=== PATIENT | female | born 1940 | race Caucasian/White ===

== ENCOUNTER → 2023-05-25 10:02 | Outpatient (REF) | payer MEDICARE, OTHER, SELFPAY ==
[2023-05-25 10:32] LABS: % Basophils 1.3 % (0-2); % Eosinophils 3.3 % (0-6); % Immature Granulocytes 0.3 % (0-0.5); % Lymphocytes 25.4 % (20.5-51.1); % Monocytes 10.3 % (1.7-9.3); % Neutrophils 59.4 % (42.2-75.2); Absolute Basophils 0.1 10^3/uL (0-0.2); Absolute Eosinophils 0.1 10^3/uL (0-0.7); Absolute Monocytes 0.4 10^3/uL (0.1-0.6); Absolute Neutrophils 2.4 10^3/uL (1.4-6.5); Hematocrit 29.3 % (37.0-47.0); Hemoglobin 10.2 g/dL (12.0-16.0); Mean Corp Hgb Conc. 34.8 g/dL (33.0-37.0); Mean Corpuscular Hgb 30.9 pg (27.0-31.0); Mean Corpuscular Volume 88.8 fL (81.0-99.0); Mean Platelet Volume 10.4 fL (7.4-10.4); Nucleated Red Blood Cells % 0 %; Platelet Count 255 10^3/uL (130-400)
== END ==
LOC: REG 10:02
PROVIDERS: ATTENDING PHYSICIAN Nurse Practitioner Family
DX: K92.2 Gastrointestinal hemorrhage, unspecified (principal); K59.09 Other constipation
CPT/HCPCS: 36415; 85025

== ENCOUNTER 2023-05-27 13:18 | Emergency (ER) | payer MEDICARE, OTHER, SELFPAY ==
[2023-05-27 13:23] VITALS: BP 201/79
[2023-05-27 13:44] LABS: % Basophils 1.2 % (0-2); % Eosinophils 2.2 % (0-6); % Immature Granulocytes 0.2 % (0-0.5); % Lymphocytes 22.2 % (20.5-51.1); % Monocytes 8.9 % (1.7-9.3); % Neutrophils 65.3 % (42.2-75.2); Absolute Basophils 0.1 10^3/uL (0-0.2); Absolute Eosinophils 0.1 10^3/uL (0-0.7); Absolute Lymphocytes 1.1 10^3/uL (1.2-3.4); Absolute Monocytes 0.4 10^3/uL (0.1-0.6); Absolute Neutrophils 3.2 10^3/uL (1.4-6.5); Hematocrit 31.2 % (37.0-47.0); Hemoglobin 10.6 g/dL (12.0-16.0); Mean Corpuscular Hgb 30.5 pg (27.0-31.0); Mean Corpuscular Volume 89.9 fL (81.0-99.0); Mean Platelet Volume 10.4 fL (7.4-10.4); Nucleated Red Blood Cells % 0 %; Platelet Count 259 10^3/uL (130-400); Red Blood Cell Count 3.47 10^6/uL (4.20-5.40); Red Cell Dist. Width 12.2 % (11.5-14.5)
[2023-05-27 13:56] LABS: ALT (SGPT) 16 U/L (0-35); AST (SGOT) 33 U/L (14-36); Albumin 4.8 g/dl (3.5-5.0); Alkaline Phosphatase 49 U/L (38-126); Blood Urea Nitrogen 22 mg/dl (7-17); Calcium 10.3 mg/dl (8.4-10.2); Carbon Dioxide 23 mmol/L (22-30); Chloride 99 mmol/L (98-107); Glucose 119 mg/dl (70-99); Potassium 4.7 mmol/L (3.5-5.1); Sodium 134 mmol/L (135-145); Total Bilirubin 0.7 mg/dl (0.2-1.3); Total Protein 7.4 g/dl (6.3-8.2); eGFR > 60.00
[2023-05-27 14:02] VITALS: BP 177/67
--- NOTE | 2023-05-27 14:29 | ED.GENMED ---
History of Present Illness
General
Chief Complaint: Abnormal Lab Value
Source: patient
Exam Limitations: none
Time Seen by Provider: 05/27/23 14:28
Nursing documentation reviewed up to this point in time: agreed with
Travel History
Have you had any contact with someone who has COVID-19?: No
Do you have any symptoms of coronavirus? Fever > 100 degrees, chills, cough, shortness of breath, sore throat, loss of taste or smell, muscle aches, or headache?: No
History of Present Illness
History of Present Illness:
83-year-old female with history of seizures, neuropathy, HTN, HLD, anxiety presents stating Saturday (3 days ago) saw blood in toilet after BM. Had been constipated previous week taking Miralax and prune juice. Has had 2 normal non bloody BMs past 2
days.
Spoke with Eloisa Cormier , states pt in office Saturday for seeing blood after BM once earlier that day, fingerstick POC 11.0.
Sent for out pt CBC next day and it was 10.2, repeated on fingerstick this a.m. in office showing Hgb 8.0 so sent here for eval.
Pt denies CP, Abd. pain, SOB.
Past History
Past History
ED Past Medical History: HTN, Hypercholesterolemia and Seizures
ED Past Surgical History: Gynecological, Orthopedic and Other
Social History
Tobacco: Non-smoker
Alcohol: None
Living: with family
Employment: Retired
Family History
Family History: Other (Noncontributory)
Review of Systems
Review of Systems
Allergies reviewed?: Yes
All Other Systems: ROS reviewed and negative except as documented in HPI and ROS
Constitutional: Denies fever or fatigue
Respiratory: Denies trouble breathing
Cardiac: Denies chest pain
ABD/GI: Reports constipated and bloody stools (Noticed some blood in the toilet after a bowel movement 3 days ago, none since); Denies abdominal pain, nausea, vomiting, diarrhea or black stools
: Denies dysuria, frequency or urgency
Musculoskeletal: Reports no symptoms
Skin: Reports no symptoms
Neurological: Reports no symptoms
Phy Exam
Physical Exam
Physical Exam:
GENERAL: No acute distress. A&Ox3.
CONSTITUTIONAL: Afebrile.
EYES: PERRL, conjunctivae normal
ENMT: moist mucus membranes, Pharynx nl
RESPIRATORY: Regular respirations, nonlabored, lungs clear.
CARDIOVASCULAR: Regular rate and rhythm, no murmurs, no rubs.
GI: Soft, nontender, normal BS
Rectal: Light brown stool, Hemoccult negative, no visible hemorrhoids
MUSCULOSKELETAL: Moves with ease. Well perfused.
SKIN: Warm, dry, pink
PSYCH: Normal mood and affect. Well kept, interactive and appropriate
NEUROLOGIC: Awake, alert and oriented. No focal neurological deficits
Course
Orders/Labs/Results
Orders:
Orders
05/27/23 13:28
Type+Screen Urgent
Complete Blood Count/With Diff Urgent
Comprehensive Metabolic Panel Urgent
Abnormal Lab Results
05/27/23
13:28
RBC 3.47 L 10^6/uL
(4.20-5.40)
Hgb 10.6 L g/dL
(12.0-16.0)
Hct 31.2 L %
(37.0-47.0)
Absolute Lymphs (auto) 1.1 L 10^3/uL
(1.2-3.4)
Sodium 134 L mmol/L
(135-145)
BUN 22 H mg/dl
(7-17)
Glucose 119 H mg/dl
(70-99)
Calcium 10.3 H mg/dl
(8.4-10.2)
05/27/23 13:28
03/18/24 13:28
Vital Signs
Initial and Last Documented VS:
Initial Vital Signs
Temp Pulse Resp BP Pulse Ox
98.2 F 69 16 201/79 99
05/27/23 13:23 05/27/23 13:23 05/27/23 13:23 05/27/23 13:23 05/27/23 13:23
Last Documented Vital Signs
Temp Pulse Resp BP Pulse Ox
98.2 F 75 18 177/67 97
05/27/23 13:23 05/27/23 14:02 05/27/23 14:02 05/27/23 14:02 05/27/23 14:02
MDM/Problems Addressed
Differential Diagnosis Includes:
Hemorrhoid, GI bleed
MDM/Problems Addressed:
83-year-old female with history of seizures, neuropathy, HTN, HLD, anxiety presents stating Saturday (3 days ago) saw blood in toilet after BM. Had been constipated previous week taking Miralax and prune juice. Has had 2 normal non bloody BMs past 2
days.
Spoke with Eloisa Cormier , states pt in office Saturday for seeing blood after BM once earlier that day, fingerstick POC 11.0.
Sent for out pt CBC next day and it was 10.2, repeated on fingerstick this a.m. in office showing Hgb 8.0 so sent here for eval.
Pt denies CP, Abd. pain, SOB.
05/27/2023 1500 PM
Hemoglobin 10.6. No clinically significant abnormality
CMP: BUN 22, encouraged to increase fluids for mild dehydration. Otherwise, no clinically significant abnormality
Most likely lab machine error
*Critical Care Note
Total Time (30-74mins, 75-104mins- exclusive of procedures): Not Applicable
ED Attending Note
-
Portions of this chart may have been created with voice recognition software.� Occasional wrong word or��sound alike� substitutions may have occurred due to the inherent limitations of voice recognition software.
Discharge Plan
Departure
Patient Disposition: Home (Routine Discharge)
Date of Disposition: 05/27/23
Time of Disposition: 15:04
Patient with high blood pressure during this ER visit?: Yes
Condition: Good
Discharge Problem:
Abnormal laboratory test
Prescriptions:
No Action
cyanocobalamin (vitamin B-12) 1,000 MCG tablet
1,000 mcg PO DAILY
amlodipine 5 MG tablet
5 mg PO DAILY
ferrous sulfate [iron] 325 MG tablet
325 mg PO Q48H
folic acid 1 MG tablet
1 mg PO DAILY
benazepril 40 MG tablet
40 mg PO DAILY
fenofibrate 160 MG tablet
160 mg PO DAILY
cholecalciferol (vitamin D3) 2,000 UNIT tablet
2,000 unit PO DAILY
sennosides [senna] 8.6 mg Tablet
8.6 mg PO HS
Metamucil Packet
1 packet PO BID
docusate sodium [Colace] 100 mg Capsule
200 mg PO DAILY
magnesium oxide 400 mg magnesium Tablet
400 mg PO HS
Referrals:
Ml Batista MD [Family Provider] -
Activity Restrictions/Additional Instructions:
As we discussed, your blood test shows nothing worrisome.
The fingerstick this a.m. at the office was most likely erroneous.
You may have had a bleeding hemorrhoid
Interventions
Interventions:
*Risk Screen - Suicide Last Done: 05/27/23 13:23
*General Assessment Last Done: 05/27/23 13:23
*Neglect/Abuse Screening Last Done: 05/27/23 13:23
ED- Fall Risk Assessment Last Done: 05/27/23 15:42
*ED COVID-19 Vaccine History Last Done: 05/27/23 13:23
*Nursing Disposition Last Done: 05/27/23 15:42
Discharge Date and Time
Discharge Date/Time: 05/27/23 15:42
== END 2023-05-27 15:42 | disposition home or self-care (01) ==
LOC: EMR 13:18
PROVIDERS: EMERGENCY PHYSICIAN Student in an Organized Health Care Education/Training Program; FAMILY PHYSICIAN Family Medicine
DX: R79.89 Other specified abnormal findings of blood chemistry (principal); I10 Essential (primary) hypertension; E78.00 Pure hypercholesterolemia, unspecified; E86.0 Dehydration
CPT/HCPCS: 99283; 80053; 85025; 86850; 86900; 86901

== ENCOUNTER → 2023-06-03 12:29 | Outpatient (REF) | payer MEDICARE, OTHER, SELFPAY ==
[2023-06-03 14:10] LABS: % Eosinophils 1.9 % (0-6); % Immature Granulocytes 0.4 % (0-0.5); % Lymphocytes 22.3 % (20.5-51.1); % Monocytes 9.8 % (1.7-9.3); % Neutrophils 64.6 % (42.2-75.2); Absolute Basophils 0.1 10^3/uL (0-0.2); Absolute Eosinophils 0.1 10^3/uL (0-0.7); Absolute Lymphocytes 1.2 10^3/uL (1.2-3.4); Absolute Monocytes 0.5 10^3/uL (0.1-0.6); Absolute Neutrophils 3.4 10^3/uL (1.4-6.5); Hematocrit 29.8 % (37.0-47.0); Hemoglobin 10.4 g/dL (12.0-16.0); Mean Corp Hgb Conc. 34.9 g/dL (33.0-37.0); Mean Corpuscular Hgb 30.9 pg (27.0-31.0); Mean Corpuscular Volume 88.4 fL (81.0-99.0); Mean Platelet Volume 11.4 fL (7.4-10.4); Nucleated Red Blood Cells % 0 %; Platelet Count 288 10^3/uL (130-400); Red Blood Cell Count 3.37 10^6/uL (4.20-5.40); Red Cell Dist. Width 12.1 % (11.5-14.5); White Blood Cell Count 5.2 10^3/uL (4.8-10.8)
== END ==
LOC: REG 12:29
PROVIDERS: ATTENDING PHYSICIAN Nurse Practitioner Family
DX: D64.9 Anemia, unspecified (principal)
CPT/HCPCS: 36415; 85025

== ENCOUNTER → 2023-10-31 11:36 | Outpatient (REF) | payer MEDICARE, OTHER, SELFPAY ==
[2023-10-31 12:21] LABS: % Basophils 1.3 % (0-2); % Eosinophils 5.6 % (0-6); % Immature Granulocytes 0.4 % (0-0.5); % Lymphocytes 23.6 % (20.5-51.1); % Monocytes 11.5 % (1.7-9.3); % Neutrophils 57.6 % (42.2-75.2); Absolute Basophils 0.1 10^3/uL (0-0.2); Absolute Eosinophils 0.3 10^3/uL (0-0.7); Absolute Lymphocytes 1.1 10^3/uL (1.2-3.4); Absolute Monocytes 0.5 10^3/uL (0.1-0.6); Absolute Neutrophils 2.7 10^3/uL (1.4-6.5); Hemoglobin 10.6 g/dL (12.0-16.0); Mean Corp Hgb Conc. 35.3 g/dL (33.0-37.0); Mean Corpuscular Hgb 30.8 pg (27.0-31.0); Mean Corpuscular Volume 87.2 fL (81.0-99.0); Mean Platelet Volume 10.5 fL (7.4-10.4); Nucleated Red Blood Cells % 0 %; Platelet Count 274 10^3/uL (130-400); Red Blood Cell Count 3.44 10^6/uL (4.20-5.40); Red Cell Dist. Width 12.4 % (11.5-14.5); White Blood Cell Count 4.6 10^3/uL (4.8-10.8)
[2023-10-31 12:46] LABS: ALT (SGPT) 16 U/L (0-35); AST (SGOT) 35 U/L (14-36); Albumin 4.8 g/dl (3.5-5.0); Alkaline Phosphatase 43 U/L (38-126); Blood Urea Nitrogen 20 mg/dl (7-17); Calcium 10.5 mg/dl (8.4-10.2); Carbon Dioxide 26 mmol/L (22-30); Chloride 96 mmol/L (98-107); Glucose 94 mg/dl (70-99); Potassium 4.6 mmol/L (3.5-5.1); Sodium 136 mmol/L (135-145); Total Bilirubin 0.6 mg/dl (0.2-1.3); Total Protein 7.1 g/dl (6.3-8.2); eGFR > 60.00
[2023-10-31 12:48] LABS: C-Reactive Protein < 5.00 mg/L (0.0-10.00)
[2023-10-31 13:18] LABS: TSH Reflex To Free T4 1.15 uIU/ml (0.47-4.68)
== END ==
LOC: REG 11:36
PROVIDERS: ATTENDING PHYSICIAN Family Medicine
DX: R53.83 Other fatigue (principal); R51.9 Headache, unspecified
CPT/HCPCS: 36415; 80053; 84443; 85025; 86140

== ENCOUNTER → 2023-11-05 11:53 | Outpatient (REF) | payer MEDICARE, OTHER, SELFPAY ==
[2023-11-05 14:45] LABS: Iron 142 ug/dl (37-170)
[2023-11-05 15:55] LABS: Folate > 20.0 ng/ml (2.76-20); Vitamin B12 906 pg/ml (239-931)
== END ==
LOC: REG 11:53
PROVIDERS: ATTENDING PHYSICIAN Family Medicine
DX: D64.9 Anemia, unspecified (principal); Z79.899 Other long term (current) drug therapy
CPT/HCPCS: 36415; 82607; 82728; 82746; 83540

== ENCOUNTER → 2023-11-18 11:47 | Outpatient (REF) | payer MEDICARE, OTHER, SELFPAY | LOC: REG 11:47 | PROVIDERS: ATTENDING PHYSICIAN Family Medicine; FAMILY PHYSICIAN Family Medicine | DX: D64.9 Anemia, unspecified (principal) | CPT/HCPCS: 82270 ==

== ENCOUNTER → 2023-11-25 11:50 | Outpatient (REF) | payer MEDICARE, OTHER, SELFPAY ==
[2023-11-25 12:19] LABS: % Basophils 1.6 % (0-2); % Immature Granulocytes 0.2 % (0-0.5); % Lymphocytes 29.9 % (20.5-51.1); % Monocytes 12.4 % (1.7-9.3); % Neutrophils 45.9 % (42.2-75.2); Absolute Basophils 0.1 10^3/uL (0-0.2); Absolute Eosinophils 0.4 10^3/uL (0-0.7); Absolute Lymphocytes 1.3 10^3/uL (1.2-3.4); Absolute Monocytes 0.6 10^3/uL (0.1-0.6); Hematocrit 30.3 % (37.0-47.0); Hemoglobin 10.4 g/dL (12.0-16.0); Mean Corp Hgb Conc. 34.3 g/dL (33.0-37.0); Mean Corpuscular Hgb 31.2 pg (27.0-31.0); Mean Platelet Volume 10.7 fL (7.4-10.4); Nucleated Red Blood Cells % 0 %; Platelet Count 259 10^3/uL (130-400); Red Blood Cell Count 3.33 10^6/uL (4.20-5.40); Red Cell Dist. Width 12.4 % (11.5-14.5); White Blood Cell Count 4.4 10^3/uL (4.8-10.8)
== END ==
LOC: REG 11:50
PROVIDERS: ATTENDING PHYSICIAN Family Medicine; FAMILY PHYSICIAN Family Medicine
DX: D64.9 Anemia, unspecified (principal)
CPT/HCPCS: 36415; 85025

== ENCOUNTER → 2023-12-11 11:38 | Outpatient (REF) | payer MEDICARE, OTHER, SELFPAY ==
[2023-12-11 13:02] LABS: % Basophils 0.7 % (0-2); % Eosinophils 2.7 % (0-6); % Immature Granulocytes 0.2 % (0-0.5); % Lymphocytes 18.3 % (20.5-51.1); % Monocytes 8.3 % (1.7-9.3); % Neutrophils 69.8 % (42.2-75.2); Absolute Eosinophils 0.2 10^3/uL (0-0.7); Absolute Monocytes 0.5 10^3/uL (0.1-0.6); Absolute Neutrophils 3.9 10^3/uL (1.4-6.5); Hematocrit 32.1 % (37.0-47.0); Hemoglobin 11.1 g/dL (12.0-16.0); Mean Corp Hgb Conc. 34.6 g/dL (33.0-37.0); Mean Corpuscular Hgb 31.3 pg (27.0-31.0); Mean Corpuscular Volume 90.4 fL (81.0-99.0); Mean Platelet Volume 11.1 fL (7.4-10.4); Nucleated Red Blood Cells % 0 %; Platelet Count 316 10^3/uL (130-400); Red Blood Cell Count 3.55 10^6/uL (4.20-5.40); Red Cell Dist. Width 12.6 % (11.5-14.5); Reticulocyte Count 1.4 % (0.4-2.8); White Blood Cell Count 5.6 10^3/uL (4.8-10.8)
[2023-12-11 13:41] LABS: ALT (SGPT) 19 U/L (0-35); AST (SGOT) 32 U/L (14-36); Alkaline Phosphatase 42 U/L (38-126); Blood Urea Nitrogen 19 mg/dl (7-17); Calcium 10.2 mg/dl (8.4-10.2); Carbon Dioxide 24 mmol/L (22-30); Chloride 98 mmol/L (98-107); Glucose 95 mg/dl (70-99); Iron 117 ug/dl (37-170); LDH 199 U/L (120-246); Potassium 4.6 mmol/L (3.5-5.1); Sodium 135 mmol/L (135-145); Total Bilirubin 0.6 mg/dl (0.2-1.3); Total Protein 7.3 g/dl (6.3-8.2); eGFR > 60.00
[2023-12-11 13:51] LABS: Percent Saturation 25 % (20-50); Total Iron Binding Capacity 467 ug/dl (265-497)
[2023-12-11 13:57] LABS: Vitamin D, 25-OH*** 51.4 ng/mL (30-80)
[2023-12-11 14:47] LABS: Folate > 20.0 ng/ml (2.76-20); Vitamin B12 936 pg/ml (239-931)
== END ==
LOC: REG 11:38
PROVIDERS: ATTENDING PHYSICIAN Nurse Practitioner Acute Care; FAMILY PHYSICIAN Family Medicine
DX: D64.9 Anemia, unspecified (principal); R53.83 Other fatigue; Z79.899 Other long term (current) drug therapy
CPT/HCPCS: 36415; 80053; 82306; 82607; 82728; 82746; 82784; 83010; 83521; 83540; 83550; 83615; 84155; 84165; 85025; 85045; 86334

== ENCOUNTER 2024-01-26 18:25 | Emergency (ER) | payer MEDICARE, OTHER, SELFPAY ==
[2024-01-26 18:31] VITALS: BP 132/74
[2024-01-26 19:00] VITALS: BP 177/67; BMI 21.5
--- NOTE | 2024-01-26 19:01 | ED.GENMED ---
History of Present Illness
General
Chief Complaint: Blood Pressure Problem
Source: patient
Exam Limitations: none
Time Seen by Provider: 01/26/24 18:47
History of Present Illness
History of Present Illness:
This is a 84 year old female that comes in with c/o hypertension. States that for the past 2-3 weeks she has had a headache. States that her BP has also been elevated. states that she saw the PCP around 2 weeks ago and her BP was high at that time.
States that they increased her Amlodipine to 10mg daily and she is taking Benazepril 40mg daily. States that her BP has been running in the 200's. States that last night it was 216/89 and tonight before coming it was 200 over something. Denies any
fever, chills, chest pain, SOB, abd pain, nausea, vomiting, diarrhea, dizziness, urinary burning.
Past History
Past History
ED Past Medical History: HTN, Hypercholesterolemia, Seizures, Psychiatric (Anxiety, ) and Other (Neuropathy, PNA, )
ED Past Surgical History: Gynecological (Tubal), Orthopedic (Left meniscus repair, Left wrist fracture) and Other
Social History
Tobacco: Non-smoker
Alcohol: None
Personal:
Living: with family
Employment: Retired
Family History
Family History: Other (Noncontributory)
Review of Systems
Review of Systems
All Other Systems: ROS reviewed and negative except as documented in HPI and ROS
Constitutional: Reports no symptoms; Denies fever or chills
EENT: Reports no symptoms
Respiratory: Reports no symptoms; Denies cough or trouble breathing
Cardiac: Reports no symptoms; Denies chest pain
ABD/GI: Reports no symptoms; Denies abdominal pain, nausea, vomiting or diarrhea
: Reports no symptoms; Denies dysuria, frequency or urgency
Musculoskeletal: Reports no symptoms
Skin: Reports no symptoms
Neurological: Reports headache; Denies dizzy
Psychiatric: Reports no symptoms
Phy Exam
General Physical Exam
General Presentation: no apparent distress
General age: appears stated age
General Skin: warm and dry
General Habitus: elderly
General Mental: anxious
General Hydration: appears well hydrated
ENT Exam
ENT Exam: TM's normal, pharynx normal and neck supple
Eye Exam
Eye Exam: EOMI
Cardiovascular Exam
Cardiovascular Exam: regular rate/rhythm, no edema, normal peripheral pulses and other (Murmur)
Pulmonary Exam
Pulmonary Exam: lungs clear, no respiratory distress, no rales, chest non tender, no crackles, no rhonchi, no wheezing and no cough
Gastrointestinal Exam
Gastrointestinal Exam: normal bowel sounds, non tender, soft, no organomegaly, no pulsatile mass and non distended
Musculoskeletal Exam
Musculoskeletal Exam: full ROM and no edema
Skin Exam
Skin Exam: normal color, warm/dry, no rash and no petechia
Psychiatric Exam
Psychiatric Exam: normal mood/affect
Course
Orders/Labs/Results
Orders:
Orders
01/26/24 18:58
Acetaminophen [Tylenol] 500 mg PO NOW STA
01/26/24 19:00
CT Head W/o Iv Contrast Urgent
Comment:
Reason For Exam: Headache
01/26/24 19:07
Electrocardiogram (*1) Urgent
Reason for Study: Hypertension, Benign
EKG- Treatment ONCE
01/26/24 19:09
Complete Blood Count/With Diff Urgent
Comprehensive Metabolic Panel Urgent
Abnormal Lab Results
01/26/24
19:09
WBC 4.5 L 10^3/uL
(4.8-10.8)
RBC 3.24 L 10^6/uL
(4.20-5.40)
Hgb 9.9 L g/dL
(12.0-16.0)
Hct 29.3 L %
(37.0-47.0)
Absolute Lymphs (auto) 1.1 L 10^3/uL
(1.2-3.4)
Monocytes % 14.1 H %
(1.7-9.3)
BUN 22 H mg/dl
(7-17)
Glucose 107 H mg/dl
(70-99)
Alkaline Phosphatase 33 L U/L
(38-126)
01/26/24 19:09
01/26/24 19:09
WBC very slightly low, H/H low, Dehydration. Glucose nonfasting. Alk phos low.
Vital Signs
Initial and Last Documented VS:
Initial Vital Signs
Temp Pulse Resp BP Pulse Ox
98.2 F 78 20 132/74 99
01/26/24 18:31 01/26/24 18:31 01/26/24 18:31 01/26/24 18:31 01/26/24 18:31
Last Documented Vital Signs
Temp Pulse Resp BP Pulse Ox
98.2 F 69 17 177/67 98
01/26/24 18:31 01/26/24 19:03 01/26/24 19:03 01/26/24 19:00 01/26/24 19:03
MDM/Problems Addressed
Differential Diagnosis Includes:
Uncontrolled Hypertension,
MDM/Problems Addressed:
This is a 84 year old female that comes in with c/o elevated BP and headache. States that this has been going on for the past 2-3 weeks. States that she has a headache and her BP is elevated.
Will check labs. CT head and watch BP.
Back into see patient. Explained that her CT of the head is normal. There is slight Dehydration noted in the blood work. Your BP at this time is 167/63. Will have patient take her BP once in the morning and once at night. Patient to follow up with
the family doctor. Patient to increase her water intake to 8-8oz glasses daily. Patient to return with any concerns.
Chronic conditions affecting care: HTN
Acute Exacerbation and/or Progression of Chronic Illness: HTN
*Radiology
Radiology exam reviewed: radiology read reviewed (CT head-No acute intracranial abnormality noted. )
*Pulse Oximetry
Patient hypoxic: no
*Critical Care Note
Total Time (30-74mins, 75-104mins- exclusive of procedures): Not Applicable
ED Attending Note
-
Portions of this chart may have been created with voice recognition software.� Occasional wrong word or��sound alike� substitutions may have occurred due to the inherent limitations of voice recognition software.
Discharge Plan
Departure
Patient Disposition: Home (Routine Discharge)
Date of Disposition: 01/26/24
Time of Disposition: 20:04
Patient with high blood pressure during this ER visit?: Yes
Condition: Good
Covid-19: Not Applicable
Discharge Problem:
Hypertension, Headache
Instructions: High Blood Pressure (DC), Headache, Adult ED, BLOOD PRESSURE
Prescriptions:
No Action
cyanocobalamin (vitamin B-12) 1,000 MCG tablet
1,000 mcg PO DAILY
amlodipine 5 MG tablet
5 mg PO DAILY
ferrous sulfate [iron] 325 MG tablet
325 mg PO Q48H
folic acid 1 MG tablet
1 mg PO DAILY
benazepril 40 MG tablet
40 mg PO DAILY
fenofibrate 160 MG tablet
160 mg PO DAILY
cholecalciferol (vitamin D3) 2,000 UNIT tablet
2,000 unit PO DAILY
sennosides [senna] 8.6 mg Tablet
8.6 mg PO HS
Metamucil Packet
1 packet PO BID
docusate sodium [Colace] 100 mg Capsule
200 mg PO DAILY
magnesium oxide 400 mg magnesium Tablet
400 mg PO HS
Activity Restrictions/Additional Instructions:
As discussed, your blood work shows that you are a little Dehydrated. Please increase your water intake to 8-8oz glasses daily. Please only take your BP once in the morning and once at night. Please sit for 5 min with your feet flat on the floor and
arm level with the heart before taking your BP. Please call your family doctor and set up a follow up appointment for further evaluation. You may also take Tylenol 1000mg every 6 hours for you headache pain. IF YOU HAVE ANY OTHER CONCERNS PLEASE
RETURN TO THE EMERGENCY ROOM.
Interventions
Interventions:
*Risk Screen - Suicide Last Done: 01/26/24 18:31
*General Assessment Last Done: 01/26/24 19:00
*Neglect/Abuse Screening Last Done: 01/26/24 18:31
*ED COVID-19 Vaccine History Last Done: 01/26/24 19:00
ED- Cardiac Assessment Last Done: 01/26/24 19:00
ED- Neurological Assessment Last Done: 01/26/24 19:00
ED- Pulmonary Assessment Last Done: 01/26/24 19:03
Discharge Date and Time
Print Language: SLOVAK
[2024-01-26 19:14] LABS: % Basophils 1.1 % (0-2); % Eosinophils 5.1 % (0-6); % Immature Granulocytes 0.2 % (0-0.5); % Lymphocytes 23.1 % (20.5-51.1); % Monocytes 14.1 % (1.7-9.3); % Neutrophils 56.4 % (42.2-75.2); Absolute Basophils 0.1 10^3/uL (0-0.2); Absolute Eosinophils 0.2 10^3/uL (0-0.7); Absolute Lymphocytes 1.1 10^3/uL (1.2-3.4); Absolute Monocytes 0.6 10^3/uL (0.1-0.6); Absolute Neutrophils 2.6 10^3/uL (1.4-6.5); Hematocrit 29.3 % (37.0-47.0); Hemoglobin 9.9 g/dL (12.0-16.0); Mean Corp Hgb Conc. 33.8 g/dL (33.0-37.0); Mean Corpuscular Hgb 30.6 pg (27.0-31.0); Mean Corpuscular Volume 90.4 fL (81.0-99.0); Mean Platelet Volume 9.7 fL (7.4-10.4); Nucleated Red Blood Cells % 0 %; Platelet Count 271 10^3/uL (130-400); Red Blood Cell Count 3.24 10^6/uL (4.20-5.40); Red Cell Dist. Width 12.4 % (11.5-14.5); White Blood Cell Count 4.5 10^3/uL (4.8-10.8)
[2024-01-26] MEDS: TYLENOL 500 MG PO (19:18)
[2024-01-26 19:44] LABS: ALT (SGPT) 16 U/L (0-35); AST (SGOT) 30 U/L (14-36); Albumin 4.6 g/dl (3.5-5.0); Alkaline Phosphatase 33 U/L (38-126); Blood Urea Nitrogen 22 mg/dl (7-17); Carbon Dioxide 23 mmol/L (22-30); Chloride 102 mmol/L (98-107); Estimated Creatinine Clearance 37 ml/min; Glucose 107 mg/dl (70-99); Sodium 137 mmol/L (135-145); Total Bilirubin 0.3 mg/dl (0.2-1.3); eGFR 55.21
[2024-01-26 20:00] VITALS: BP 167/63
== END 2024-01-26 20:26 | disposition home or self-care (01) ==
LOC: EMR 18:25
PROVIDERS: Clinical Nurse Specialist Family Health; EMERGENCY PHYSICIAN Emergency Medicine; FAMILY PHYSICIAN Family Medicine
DX: I10 Essential (primary) hypertension (principal); R51.9 Headache, unspecified; E78.00 Pure hypercholesterolemia, unspecified; Z79.899 Other long term (current) drug therapy
CPT/HCPCS: 99284; 70450; 80053; 85025; 93005

== ENCOUNTER 2024-02-04 14:04 | Emergency (ER) | payer MEDICARE, OTHER, SELFPAY ==
[2024-02-04 14:07] VITALS: BP 125/73
--- NOTE | 2024-02-04 14:15 | ED.MUSCINJ ---
HPI-Injury
<Margarette Cueva PA-C - Last Filed: 02/04/24 14:17>
General
Chief Complaint: Fall
Time Seen by Provider: 02/04/24 14:53
<Jessika Rivera PA-C - Last Filed: 02/04/24 19:05>
General
Source: patient
Exam Limitations: none
Nursing documentation reviewed up to this point in time: agreed with
History of Present Illness-Injury
Is this injury a work related problem?: No
Initial Injury comments:
84-year-old female with past medical history of neuropathy, anxiety, seizures presents emergency department today with concerns of fall. Patient lives at home with son. She uses a cane at baseline. She reports that she was carrying a rug into her
home when the end of the rug got caught between her feet and she subsequently fell. Her knees broke her fall. She not hit her head or injure her neck. She did not lose consciousness. Her son had to help her up and she states that when she got
up, she does have right toe pain with weightbearing and pain in her left knee. Patient has no pain in her upper extremities. Patient does not take a blood thinner. Patient denies chest pain or shortness of breath. Patient denies palpitations
ED Provider Triage
<Margarette Cueva PA-C - Last Filed: 02/04/24 14:17>
-
Patient seen by provider in Triage?: Seen in Triage
84-year-old female history of epilepsy, had a mechanical trip and fall when she was carrying her rugs. She has pain in her right third fourth and fifth toes as well as her left knee. She says she landed on both knees with her foot underneath her.
She was able to get up but she is having a lot of pain with weightbearing. She did Tylenol yesterday. This fall was yesterday
A medical screening examination has been initiated by a qualified medical provider. Based on the assessment performed at this time, it has been determined that an emergent medical condition may exist and the patient has been informed that further
medical evaluation and possible additional diagnostic testing may be needed.
HPI: This is a medical evaluation conducted in person to initiate diagnostic evaluation and provide initial therapeutics. Please see further documentation by the treating clinician.
GENERAL: Alert , in no apparent distress
ENT: No visible abnormalities
LUNGS: No acute respiratory distress
NEUROLOGICAL: Alert and oriented
SKIN: Skin intact. No visible changes.
MUSCULOSKELETAL: No significant swelling of the right foot, questionable bruising or redness of the right fifth toe, painful range of motion, no deformity, no ankle tenderness, left knee has some arthritic changes with mild pain with flexion, no
significant swelling or effusion
PSYCH: Normal and appropriate interaction.
Past History
<Margarette Cueva PA-C - Last Filed: 02/04/24 14:17>
Past History
ED Past Medical History: HTN, Hypercholesterolemia, Seizures, Psychiatric (Anxiety, ) and Other (Neuropathy, PNA, )
ED Past Surgical History: Gynecological (Tubal), Orthopedic (Left meniscus repair, Left wrist fracture) and Other
Social History
Tobacco: Non-smoker
Alcohol: None
Personal:
Living: with family
Employment: Retired
Family History
Family History: Other (Noncontributory)
Review of Systems
<Jessika Rivera PA-C - Last Filed: 02/04/24 19:05>
Review of Systems
All Other Systems: ROS reviewed and negative except as documented in HPI and ROS
Phy Exam
<Jessika Rivera PA-C - Last Filed: 02/04/24 19:05>
Physical Exam
Physical Exam:
General: Patient is well appearing and in no acute distress; non-toxic
Skin: Warm and dry, no rashes or lesions
Head: Normocephalic, atraumatic
Eyes: Sclera non-icteric. EOMs intact.
Cardiac: Regular rate
Peripheral Vascular: No lower extremity swelling or edema, 2+ dorsalis pedis and posterior tibial pulses bilaterally
Pulm: Normal respiratory effort
Abdomen: No abdominal tenderness
Musculoskeletal: Full range of motion of bilateral lower extremities. Left knee joint stable, no joint laxity with varus valgus stress, anterior drawer testing negative. No palpable bony deformities. No palpable bony deformities of right toes.
Neuro: CN II-XII intact, no focal neurologic deficits. Sensation intact light touch bilateral lower extremities.
Psychiatric: Appropriate mood and affect.
Injury Course
<Margarette Cueva PA-C - Last Filed: 02/04/24 14:17>
Orders/Labs/Results
Orders:
Orders
02/04/24 14:13
CR Foot - Right Min 3 Views Urgent
Comment:
Reason For Exam: fall right latera toe pain
CR Knee - Left 4 Or More View* Urgent
Comment:
Reason For Exam: left knee pain after fall
02/04/24 15:23
Acetaminophen [Tylenol] 1,000 mg PO NOW STA
<Jessika Rivera PA-C - Last Filed: 02/04/24 19:05>
Orders/Labs/Results
Orders:
Orders
02/04/24 14:13
CR Foot - Right Min 3 Views Urgent
Comment:
Reason For Exam: fall right latera toe pain
CR Knee - Left 4 Or More View* Urgent
Comment:
Reason For Exam: left knee pain after fall
02/04/24 15:23
Acetaminophen [Tylenol] 1,000 mg PO NOW STA
<Gonzales Barney DO - Last Filed: 02/04/24 20:22>
Orders/Labs/Results
Orders:
Orders
02/04/24 14:13
CR Foot - Right Min 3 Views Urgent
Comment:
Reason For Exam: fall right latera toe pain
CR Knee - Left 4 Or More View* Urgent
Comment:
Reason For Exam: left knee pain after fall
02/04/24 15:23
Acetaminophen [Tylenol] 1,000 mg PO NOW STA
<Jessika Rivera PA-C - Last Filed: 02/04/24 19:05>
MDM/Problems Addressed
Differential Diagnosis Includes:
Phalangeal fracture, tarsal fracture, ankle sprain, left knee sprain, patellar fracture
MDM/Problems Addressed:
84-year-old female presents emergency department following a fall. She fell forward onto her knees. She not hit her head or injure her neck. She is not on a blood thinner. On exam, patient is well-appearing and in no acute distress. She
complains of left knee pain and right toe pain. Her knee x-ray shows no findings to suggest recent cortical fracture in her foot x-ray she has no evidence of fracture as well. Patient patient walked with small electric engine technician without difficulty. Patient given
walking shoe for support of the toes. Patient stable for discharge. She does live with son at home and she does not have to climb stairs.
Chronic conditions affecting care:
Seizures, hypertension, hyperlipidemia, neuropathy
<Jessika Rivera PA-C - Last Filed: 02/04/24 19:05>
*Pulse Oximetry
Patient hypoxic: no
*Critical Care Note
Total Time (30-74mins, 75-104mins- exclusive of procedures): Not Applicable
Data Reviewed
Review of Other/Old Records Reveals: Records (Reviewed previous irritation and mentation of -, patient seen for headache and hypertension, reviewed discharge summary from 09/15/2014, patient seen for anemia)
Source: patient and records
<Gonzales Barney DO - Last Filed: 02/04/24 20:22>
*Radiology
Radiology exam reviewed: radiology read reviewed
ED Attending Note
<Margarette Cueva PA-C - Last Filed: 02/04/24 14:17>
-
Portions of this chart may have been created with voice recognition software.� Occasional wrong word or��sound alike� substitutions may have occurred due to the inherent limitations of voice recognition software.
<Gonzales Barney DO - Last Filed: 02/04/24 20:22>
ED Attending Note
Patient seen and examined by attending physician: Yes
I performed the substantive portion of visit, reviewed & personally made and approve the management plan that is documented in note by myself or YAYA.: Yes
ED Attending Note:
Patient is [id number] female presents to the emergency department stating she caught her foot on material and fell twisting her right foot and landing on her left knee. Patient is concerned that she is fractured both. Patient was able to
weight-bear and walk on them afterwards but did need assistance to stand up. Patient denies striking her head. Patient denies any neck or back pain. Patient does have tenderness about her toes and less so in the ankle and knees. Patient's left
knee is larger than her right from previous injury. Neurovascularly and tendons are intact. X-rays do not show any fractures but do show significant osteoporosis and osteopenia. Most of the issues with the patient's right toes. Patient was able
to walk in the emergency department and because it just involves the toe and distal foot patient will be put in a cast shoe/podiatric shoe. Patient will be discharged to follow-up with Ortho.
Discharge Plan
Departure
Patient Disposition: Home (Routine Discharge)
Date of Disposition: 02/04/24
Time of Disposition: 15:53
Patient with high blood pressure during this ER visit?: Yes
Condition: Good
Discharge Problem:
Fall, Pain in toe of right foot
Instructions: Preventing falls in adults, Foot sprain, BLOOD PRESSURE
Prescriptions:
No Action
cyanocobalamin (vitamin B-12) 1,000 MCG tablet
1,000 mcg PO DAILY
amlodipine 5 MG tablet
5 mg PO DAILY
ferrous sulfate [iron] 325 MG tablet
325 mg PO Q48H
folic acid 1 MG tablet
1 mg PO DAILY
benazepril 40 MG tablet
40 mg PO DAILY
fenofibrate 160 MG tablet
160 mg PO DAILY
cholecalciferol (vitamin D3) 2,000 UNIT tablet
2,000 unit PO DAILY
sennosides [senna] 8.6 mg Tablet
8.6 mg PO HS
Metamucil Packet
1 packet PO BID
docusate sodium [Colace] 100 mg Capsule
200 mg PO DAILY
magnesium oxide 400 mg magnesium Tablet
400 mg PO HS
Referrals:
Pop Wilson MD [Active] - Call in 1-3 days for appt
Activity Restrictions/Additional Instructions:
Please call the attached number to schedule an appointment to see an orthopedist in follow-up.
Please return to emergency department should you develop the inability to ambulate, chest pain, shortness of breath, increasing pain, pallor in your foot, numbness or tingling, weakness, confusion, or any other symptoms or signs worrisome to you
Interventions
Interventions:
*Risk Screen - Suicide Last Done: 02/04/24 14:07
*General Assessment Last Done: 02/04/24 14:07
*Neglect/Abuse Screening Last Done: 02/04/24 14:07
*Nursing Disposition Last Done: 02/04/24 16:10
ED-Musculoskeletal Assessment Last Done: 02/04/24 14:30
ED- Neurological Assessment Last Done: 02/04/24 14:30
Discharge Date and Time
Discharge Date/Time: 02/04/24 16:11
Print Language: CHADIAN
[2024-02-04] MEDS: TYLENOL 1000 MG PO (15:31)
== END 2024-02-04 16:11 | disposition home or self-care (01) ==
LOC: EMR 14:04
PROVIDERS: EMERGENCY PHYSICIAN Emergency Medicine; FAMILY PHYSICIAN Family Medicine
DX: M79.674 Pain in right toe(s) (principal); M25.562 Pain in left knee; W18.09XA Striking against other object with subsequent fall, initial encounter; E78.00 Pure hypercholesterolemia, unspecified; G40.909 Epilepsy, unspecified, not intractable, without status epilepticus; I10 Essential (primary) hypertension
CPT/HCPCS: 99283; 73564; 73630

== ENCOUNTER → 2024-05-29 11:19 | Outpatient (REF) | payer MEDICARE, SELFPAY ==
[2024-05-29 12:23] LABS: % Basophils 1.2 % (0-2); % Eosinophils 6.4 % (0-6); % Immature Granulocytes 0.2 % (0-0.5); % Lymphocytes 29.8 % (20.5-51.1); % Monocytes 12.8 % (1.7-9.3); % Neutrophils 49.6 % (42.2-75.2); Absolute Basophils 0.1 10^3/uL (0-0.2); Absolute Eosinophils 0.3 10^3/uL (0-0.7); Absolute Lymphocytes 1.3 10^3/uL (1.2-3.4); Absolute Monocytes 0.5 10^3/uL (0.1-0.6); Absolute Neutrophils 2.1 10^3/uL (1.4-6.5); Hematocrit 30.7 % (37.0-47.0); Mean Corp Hgb Conc. 32.6 g/dL (33.0-37.0); Mean Corpuscular Hgb 30.4 pg (27.0-31.0); Mean Corpuscular Volume 93.3 fL (81.0-99.0); Mean Platelet Volume 11.3 fL (7.4-10.4); Nucleated Red Blood Cells % 0 %; Platelet Count 252 10^3/uL (130-400); Red Blood Cell Count 3.29 10^6/uL (4.20-5.40); Red Cell Dist. Width 12.4 % (11.5-14.5); White Blood Cell Count 4.2 10^3/uL (4.8-10.8)
[2024-05-29 13:16] LABS: C-Reactive Protein < 5.00 mg/L (0.0-10.00)
[2024-05-29 13:29] LABS: ALT (SGPT) 14 U/L (0-35); AST (SGOT) 26 U/L (14-36); Albumin 4.4 g/dl (3.5-5.0); Alkaline Phosphatase 42 U/L (38-126); Blood Urea Nitrogen 22 mg/dl (7-17); Calcium 10.3 mg/dl (8.4-10.2); Carbon Dioxide 26 mmol/L (22-30); Chloride 103 mmol/L (98-107); Glucose 86 mg/dl (70-99); Potassium 5.2 mmol/L (3.5-5.1); Sodium 136 mmol/L (135-145); Total Bilirubin 0.6 mg/dl (0.2-1.3); Total Protein 6.9 g/dl (6.3-8.2); eGFR 55.21
[2024-05-29 13:47] LABS: TSH Reflex To Free T4 1.11 uIU/ml (0.47-4.68)
== END ==
LOC: REG 11:19
PROVIDERS: ATTENDING PHYSICIAN Family Medicine
DX: I10 Essential (primary) hypertension (principal); R53.82 Chronic fatigue, unspecified; D64.9 Anemia, unspecified; H01.9 Unspecified inflammation of eyelid
CPT/HCPCS: 36415; 80053; 84443; 85025; 86140

== ENCOUNTER → 2024-07-03 11:21 | Outpatient (REF) | payer MEDICARE, SELFPAY ==
[2024-07-03 12:34] LABS: Calcium 10.4 mg/dl (8.4-10.2); Potassium 4.6 mmol/L (3.5-5.1)
== END ==
LOC: REG 11:21
PROVIDERS: ATTENDING PHYSICIAN Family Medicine
DX: E83.52 Hypercalcemia (principal); E87.5 Hyperkalemia
CPT/HCPCS: 36415; 82310; 84132

== ENCOUNTER 2024-08-28 10:48 | Emergency (ER) | payer MEDICARE, SELFPAY ==
[2024-08-28 11:04] VITALS: BP 189/75
[2024-08-28 11:32] LABS: % Basophils 1.3 % (0-2); % Eosinophils 4.4 % (0-6); % Immature Granulocytes 0.2 % (0-0.5); % Lymphocytes 29.8 % (20.5-51.1); % Monocytes 10.3 % (1.7-9.3); Absolute Basophils 0.1 10^3/uL (0-0.2); Absolute Eosinophils 0.2 10^3/uL (0-0.7); Absolute Lymphocytes 1.4 10^3/uL (1.2-3.4); Absolute Monocytes 0.5 10^3/uL (0.1-0.6); Absolute Neutrophils 2.5 10^3/uL (1.4-6.5); Hematocrit 30.6 % (37.0-47.0); Hemoglobin 10.5 g/dL (12.0-16.0); Mean Corp Hgb Conc. 34.3 g/dL (33.0-37.0); Mean Corpuscular Hgb 30.6 pg (27.0-31.0); Mean Corpuscular Volume 89.2 fL (81.0-99.0); Mean Platelet Volume 10.7 fL (7.4-10.4); Nucleated Red Blood Cells % 0 %; Platelet Count 266 10^3/uL (130-400); Red Blood Cell Count 3.43 10^6/uL (4.20-5.40); Red Cell Dist. Width 12.4 % (11.5-14.5); White Blood Cell Count 4.6 10^3/uL (4.8-10.8)
--- NOTE | 2024-08-28 11:40 | ED.GENMED ---
History of Present Illness
General
Chief Complaint: Fainting Sensation
Time Seen by Provider: 08/28/24 11:39
History of Present Illness
History of Present Illness:
TIME OF INITIAL EVALUATION
- 11:40 AM
REVIEW OF OLD RECORDS
- High blood pressure, hyperlipidemia, the patient was seen here in January related to a headache and also another visit related to a fall; she has been anemic in the past and was admitted for anemia in 2014
Note:
CHIEF COMPLAINT(S)
Dizziness
HISTORY OF PRESENT ILLNESS
The patient is an 84-year-old female with a past medical history of anemia, presenting with dizziness for the past few weeks. The dizziness is described as a lightheaded feeling rather than a sensation of movement. The patient also reports a
sensation of feeling hot, though no actual fever is present. She reports increased tiredness and uses a cane for stability, which she had not used in over a year. There is no reported loss of strength or coordination upon examination. The patient
denies any overt blood loss or black stools.
ADDITIONAL HISTORY OBTAINED FROM SOURCES OTHER THAN THE PATIENT
Her son reports the patient has been more tired than usual.
EXTERNAL RECORDS REVIEWED
Based on prior ER records from 2014, the patient was previously admitted for anemia. Current blood work results are pending.
PHYSICAL EXAM
- Coordination: Good coordination noted in upper limbs.
- Strength: Strength appears normal bilaterally in upper and lower extremities.
- Sensation: Normal sensation to touch in lower extremities.
- Vital signs and nursing notes reviewed.
DIFFERENTIAL DIAGNOSIS
The Differential Diagnosis includes, in no particular order and is not limited to:
1. Anemia
2. Orthostatic hypotension
3. Vestibular dysfunction
4. Dehydration
5. Medication side effects
6. Hypoglycemia
7. Cardiovascular insufficiency
8. Hypertension
9. Anxiety-related dizziness
10. Central nervous system pathology
RADIOLOGY
- No clear indication for CT imaging but I did offer and consider CT imaging of the abdomen pelvis
EKG
- Sinus 66, left axis deviation, no acute ST abnormality
LABS
- White count 4.6, hemoglobin 10.5 which is near recent baseline, chemistries relatively unremarkable however the calcium is slightly high at 10.7
UPDATE
- Condition unchanged while in ED
INDEPENDENT REVIEW OF LABS AND INTERPRETATION OF TESTS
My independent review of the blood work shows a hemoglobin level that is slightly low, indicating mild anemia, with no significant drop from previous levels. B12 levels were added for evaluation but results are pending. Calcium levels were slightly
elevated, but not at a level typically associated with symptoms. Neurologic examination was normal. EKG was reviewed and appeared normal.
MEDICAL DECISION MAKING
1. Number & Complexity of Problems: Chronic conditions affecting care: anemia. Differential diagnoses include potential factors like nutritional deficits (B12), dehydration, or other non-severe causes given lab findings.
2. Data Reviewed:
- Category 1: Blood work and EKG were ordered and reviewed.
- Category 2: External notes or independent historians were referenced regarding past anemia.
PATHOLOGIES TO CONSIDER
- Anemia: Evaluate for potential contributing factors despite mild current findings.
- Cardiovascular insufficiency: Consider possible related factors given age and dizziness.
- Central nervous system pathology: However, Normal neurological exam
Past History
Past History
ED Past Medical History: HTN, Hypercholesterolemia, Seizures, Psychiatric (Anxiety, ) and Other (Neuropathy, PNA, )
ED Past Surgical History: Gynecological (Tubal), Orthopedic (Left meniscus repair, Left wrist fracture) and Other
Social History
Tobacco: Non-smoker
Alcohol: None
Personal:
Living: with family
Employment: Retired
Family History
Family History: Other (Noncontributory)
Phy Exam
Physical Exam
Physical Exam:
See HPI
Course
Orders/Labs/Results
Orders:
Orders
08/28/24 10:51
EKG [Electrocardiogram (*1)] Urgent
Reason for Study: Syncope
EKG- Treatment ONCE
08/28/24 11:21
Complete Blood Count/With Diff Urgent
Comprehensive Metabolic Panel Urgent
Troponin I Urgent
Abnormal Lab Results
08/28/24
11:21
WBC 4.6 L 10^3/uL
(4.8-10.8)
RBC 3.43 L 10^6/uL
(4.20-5.40)
Hgb 10.5 L g/dL
(12.0-16.0)
Hct 30.6 L %
(37.0-47.0)
MPV 10.7 H fL
(7.4-10.4)
Monocytes % 10.3 H %
(1.7-9.3)
BUN 20 H mg/dl
(7-17)
Calcium 10.7 H mg/dl
(8.4-10.2)
Alkaline Phosphatase 28 L U/L
(38-126)
08/28/24 11:21
08/28/24 11:21
Vital Signs
Initial and Last Documented VS:
Initial Vital Signs
Temp Pulse Resp BP Pulse Ox
36.6 C 69 20 189/75 98
08/28/24 11:04 08/28/24 11:04 08/28/24 11:04 08/28/24 11:04 08/28/24 11:04
Last Documented Vital Signs
Temp Pulse Resp BP Pulse Ox
36.6 C 72 19 171/69 99
08/28/24 11:04 08/28/24 13:14 08/28/24 13:14 08/28/24 13:14 08/28/24 12:00
*Pulse Oximetry
SaO2: 99
Oxygen Mode of Delivery: Room air
Patient hypoxic: no
*[employer] Interpretation
Rate: normal
Interpretation: normal
Heart Rate: 69
Rhythm: sinus
*Critical Care Note
Total Time (30-74mins, 75-104mins- exclusive of procedures): Not Applicable
ED Attending Note
-
Portions of this chart may have been created with voice recognition software.� Occasional wrong word or��sound alike� substitutions may have occurred due to the inherent limitations of voice recognition software.
Discharge Plan
Departure
Prescriptions:
No Action
cyanocobalamin (vitamin B-12) 1,000 MCG tablet
1,000 mcg PO DAILY
amlodipine 5 MG tablet
5 mg PO DAILY
ferrous sulfate [iron] 325 MG tablet
325 mg PO Q48H
folic acid 1 MG tablet
1 mg PO DAILY
benazepril 40 MG tablet
40 mg PO DAILY
fenofibrate 160 MG tablet
160 mg PO DAILY
cholecalciferol (vitamin D3) 2,000 UNIT tablet
2,000 unit PO DAILY
sennosides [senna] 8.6 mg Tablet
8.6 mg PO HS
Metamucil Packet
1 packet PO BID
docusate sodium [Colace] 100 mg Capsule
200 mg PO DAILY
magnesium oxide 400 mg magnesium Tablet
400 mg PO HS
Referrals:
Ml Batista MD [Family Provider, Family Practice]
Interventions
Interventions:
*Risk Screen - Suicide Last Done: 08/28/24 11:04
*General Assessment Last Done: 08/28/24 11:22
*Neglect/Abuse Screening Last Done: 08/28/24 11:04
*ED- Fall Risk Assessment Last Done: 08/28/24 11:22
*ED COVID-19 Vaccine History Last Done: 08/28/24 11:22
ED- Cardiac Assessment Last Done: 08/28/24 11:24
ED- Neurological Assessment Last Done: 08/28/24 11:24
Discharge Date and Time
Print Language: ESTONIAN
[2024-08-28 11:52] LABS: ALT (SGPT) 16 U/L (0-35); AST (SGOT) 29 U/L (14-36); Alkaline Phosphatase 28 U/L (38-126); Blood Urea Nitrogen 20 mg/dl (7-17); Calcium 10.7 mg/dl (8.4-10.2); Carbon Dioxide 22 mmol/L (22-30); Chloride 103 mmol/L (98-107); Glucose 97 mg/dl (70-99); Potassium 4.2 mmol/L (3.5-5.1); Sodium 135 mmol/L (135-145); Total Bilirubin 0.6 mg/dl (0.2-1.3); Total Protein 7.4 g/dl (6.3-8.2); eGFR > 60.00
[2024-08-28 12:04] LABS: Troponin I < 0.012 ng/ml
[2024-08-28 13:14] VITALS: BP 171/69
[2024-08-28 14:00] VITALS: BP 166/88
[2024-08-28 17:03] LABS: Vitamin B12 811 pg/ml (239-931)
== END 2024-08-28 14:25 | disposition home or self-care (01) ==
LOC: EMR 10:48
PROVIDERS: EMERGENCY PHYSICIAN Emergency Medicine; FAMILY PHYSICIAN Family Medicine
DX: R55 Syncope and collapse (principal); E78.00 Pure hypercholesterolemia, unspecified; I10 Essential (primary) hypertension
CPT/HCPCS: 99283; 80053; 82607; 84484; 85025; 93005

== ENCOUNTER 2024-09-04 09:53 | Emergency (ER) | payer MEDICARE, SELFPAY ==
[2024-09-04] VITALS (8 sets, daily range): BP systolic 164–187; BP diastolic 52–156; BMI 20.5
[2024-09-04 11:38] LABS: % Basophils 0.3 % (0-2); % Eosinophils 0.1 % (0-6); % Immature Granulocytes 0.4 % (0-0.5); % Lymphocytes 3.3 % (20.5-51.1); % Monocytes 1.9 % (1.7-9.3); Absolute Lymphocytes 0.3 10^3/uL (1.2-3.4); Absolute Monocytes 0.2 10^3/uL (0.1-0.6); Absolute Neutrophils 9.6 10^3/uL (1.4-6.5); Hematocrit 28.3 % (37.0-47.0); Mean Corp Hgb Conc. 35.3 g/dL (33.0-37.0); Mean Corpuscular Hgb 30.6 pg (27.0-31.0); Mean Corpuscular Volume 86.5 fL (81.0-99.0); Mean Platelet Volume 10.6 fL (7.4-10.4); Nucleated Red Blood Cells % 0 %; Platelet Count 258 10^3/uL (130-400); Red Blood Cell Count 3.27 10^6/uL (4.20-5.40); Red Cell Dist. Width 12.4 % (11.5-14.5); White Blood Cell Count 10.2 10^3/uL (4.8-10.8)
[2024-09-04 11:51] LABS: ALT (SGPT) 15 U/L (0-35); AST (SGOT) 28 U/L (14-36); Albumin 4.7 g/dl (3.5-5.0); Alkaline Phosphatase 30 U/L (38-126); Blood Urea Nitrogen 27 mg/dl (7-17); Calcium 10.1 mg/dl (8.4-10.2); Carbon Dioxide 24 mmol/L (22-30); Chloride 103 mmol/L (98-107); Glucose 136 mg/dl (70-99); Potassium 4.1 mmol/L (3.5-5.1); Sodium 135 mmol/L (135-145); Total Bilirubin 0.6 mg/dl (0.2-1.3); Total Protein 7.1 g/dl (6.3-8.2); eGFR > 60.00
[2024-09-04] MEDS: NSS 1000 IV (12:00)
--- NOTE | 2024-09-04 12:02 | ED.GENMED ---
History of Present Illness
General
Chief Complaint: Weakness
Source: patient and family
Exam Limitations: none
Time Seen by Provider: 09/04/24 10:45
Nursing documentation reviewed up to this point in time: agreed with
History of Present Illness
History of Present Illness:
84-year-old female accompanied by her family member she has had some vomiting, states she passed out in her sleep, vomited x 2 mild headache, no abdominal pain seen here a week or so ago with weakness discharged to home no chest pain or shortness of
breath no dark or bloody stools no dysuria or frequency family states she looks pale but does not go outside very much
Past History
Past History
ED Past Medical History: HTN, Hypercholesterolemia, Seizures, Psychiatric (Anxiety, ) and Other (Neuropathy, PNA, )
ED Past Surgical History: Gynecological (Tubal), Orthopedic (Left meniscus repair, Left wrist fracture) and Other
Social History
Tobacco: Non-smoker
Alcohol: None
Personal:
Living: with family
Employment: Retired
Family History
Family History: Other (Noncontributory)
Review of Systems
Review of Systems
All Other Systems: Not applicable
Constitutional: Reports fatigue; Denies fever
EENT: Reports no symptoms
Respiratory: Reports no symptoms
Cardiac: Reports no symptoms
ABD/GI: Reports nausea and vomiting; Denies abdominal pain
Neurological: Reports headache and weakness
Endocrine: Reports no symptoms
Phy Exam
Physical Exam
Physical Exam:
Physical Exam
General: no apparent distress, not acutely ill
Neck: Dry lips
Heart: s1/s2 regular rate and rhythm, no murmur. equal radial pulses.
Lungs: no acute respiratory distress. clear bilaterally
Abdomen: Soft nontender no guarding or
Neuro: alert and oriented. no focal neurological deficits
Skin: no rash
Psychiatric: well kept. interactive and cooperative
Extremities: no edema.
Course
Orders/Labs/Results
Orders:
Orders
09/04/24 11:03
Electrocardiogram (*1) Stat
Reason for Study: Other
Other Reason for Exam: GI Bleed
Cardiac Monitoring- Treatment ONCE
EKG- Treatment ONCE
IV Insert/Care/Rem.- Treatment PRN
09/04/24 11:22
Complete Blood Count/With Diff Urgent
Comprehensive Metabolic Panel Urgent
09/04/24 11:44
CT Head W/o Iv Contrast Urgent
Comment:
Reason For Exam: vomiting
0.9% Sodium Chloride 1000 ml [Nss] 1,000 ml IV BOLUS
Ondansetron Injectable [Zofran] 4 mg IV NOW STA
Obstruct Series W/PA Chest [CR Obstruct Series W/pa Chest] Urgent
Comment:
Reason For Exam: vomiting
Abnormal Lab Results
09/04/24
11:22
RBC 3.27 L 10^6/uL
(4.20-5.40)
Hgb 10.0 L g/dL
(12.0-16.0)
Hct 28.3 L %
(37.0-47.0)
MPV 10.6 H fL
(7.4-10.4)
Absolute Neuts (auto) 9.6 H 10^3/uL
(1.4-6.5)
Absolute Lymphs (auto) 0.3 L 10^3/uL
(1.2-3.4)
Neutrophils % 94.0 H %
(42.2-75.2)
Lymphocytes % 3.3 L %
(20.5-51.1)
BUN 27 H mg/dl
(7-17)
Glucose 136 H mg/dl
(70-99)
Alkaline Phosphatase 30 L U/L
(38-126)
09/04/24 11:22
09/04/24 11:22
Vital Signs
Initial and Last Documented VS:
Initial Vital Signs
Temp Pulse Resp BP Pulse Ox
98.4 F 85 16 182/67 99
09/04/24 09:55 09/04/24 09:55 09/04/24 09:55 09/04/24 09:55 09/04/24 09:55
Last Documented Vital Signs
Temp Pulse Resp BP Pulse Ox
98.4 F 78 14 171/137 97
09/04/24 09:55 09/04/24 14:15 09/04/24 14:15 09/04/24 14:00 09/04/24 14:15
MDM/Problems Addressed
Differential Diagnosis Includes:
Viral syndrome obstruction intracerebral bleed less likely
MDM/Problems Addressed:
Vomiting headache
Chronic conditions affecting care: HTN
Acute Exacerbation and/or Progression of Chronic Illness: HTN
*Pulse Oximetry
SaO2: 99
Oxygen Mode of Delivery: Room air
Patient hypoxic: no
*EKG
Interpreted by ED Provider?: Yes
Interpretation: normal
Comparison EKG: no comparison EKG present
Heart Rate: 78
Rate: normal
Rhythm: sinus
Ischemia: non-specific ST changes
*Critical Care Note
Total Time (30-74mins, 75-104mins- exclusive of procedures): Not Applicable
Update Note
Update Note:
4 PM update patient feels better abdomen soft and nontender anxious to go home
ED Attending Note
-
Portions of this chart may have been created with voice recognition software.� Occasional wrong word or��sound alike� substitutions may have occurred due to the inherent limitations of voice recognition software.
Discharge Plan
Departure
Patient Disposition: Home (Routine Discharge)
Date of Disposition: 09/04/24
Time of Disposition: 15:58
Patient with high blood pressure during this ER visit?: No
Condition: Good
Discharge Problem:
Vomiting
Instructions: Generalized Weakness (DC), [place] diet, Acute Nausea and Vomiting
Prescriptions:
New
ondansetron 4 mg tablet,disintegrating
4 mg PO Q8H PRN (Reason: nausea and vomiting) Qty: 10 0RF
No Action
cyanocobalamin (vitamin B-12) 1,000 MCG tablet
1,000 mcg PO DAILY
amlodipine 5 MG tablet
5 mg PO DAILY
ferrous sulfate [iron] 325 MG tablet
325 mg PO Q48H
folic acid 1 MG tablet
1 mg PO DAILY
benazepril 40 MG tablet
40 mg PO DAILY
fenofibrate 160 MG tablet
160 mg PO DAILY
cholecalciferol (vitamin D3) 2,000 UNIT tablet
2,000 unit PO DAILY
sennosides [senna] 8.6 mg Tablet
8.6 mg PO HS
Metamucil Packet
1 packet PO BID
docusate sodium [Colace] 100 mg Capsule
200 mg PO DAILY
magnesium oxide 400 mg magnesium Tablet
400 mg PO HS
Referrals:
Eloisa Mead CRNP [Family Provider, Family Practice] - Follow up in 10 days
Activity Restrictions/Additional Instructions:
[place] diet, Zofran as needed for nausea vomiting
Interventions
Interventions:
*Risk Screen - Suicide Last Done: 09/04/24 12:00
*Neglect/Abuse Screening Last Done: 09/04/24 12:00
*ED- Fall Risk Assessment Last Done: 09/04/24 14:28
*ED COVID-19 Vaccine History Last Done: 09/04/24 14:28
ED- Cardiac Assessment Last Done: 09/04/24 11:30
ED- Neurological Assessment Last Done: 09/04/24 11:30
ED- Pulmonary Assessment Last Done: 09/04/24 11:30
Discharge Date and Time
Print Language: SYRIAC
[2024-09-04] MEDS: ZOFRAN 4 MG IV (12:58)
== END 2024-09-04 17:15 | disposition home or self-care (01) ==
LOC: EMR 09:53
PROVIDERS: EMERGENCY PHYSICIAN Emergency Medicine; FAMILY PHYSICIAN Nurse Practitioner Family
DX: R53.1 Weakness (principal); I10 Essential (primary) hypertension; E78.00 Pure hypercholesterolemia, unspecified
CPT/HCPCS: 99284; 96374; 96361; 70450; 74022; 80053; 85025; 93005

== ENCOUNTER 2024-09-08 14:12 | Emergency (ER) | payer MEDICARE, SELFPAY ==
[2024-09-08 14:20] VITALS: BP 192/74
[2024-09-08 14:29] LABS: Hematocrit 29.3 % (37.0-47.0); Hemoglobin 10.7 g/dL (12.0-16.0); Mean Corp Hgb Conc. 36.5 g/dL (33.0-37.0); Mean Corpuscular Volume 84.9 fL (81.0-99.0); Nucleated Red Blood Cells % 0 %; Platelet Count 299 10^3/uL (130-400); Red Cell Dist. Width 12.3 % (11.5-14.5)
[2024-09-08 14:42] LABS: ALT (SGPT) 19 U/L (0-35); AST (SGOT) 32 U/L (14-36); Albumin 5.0 g/dl (3.5-5.0); Alkaline Phosphatase 33 U/L (38-126); Blood Urea Nitrogen 20 mg/dl (7-17); Calcium 10.8 mg/dl (8.4-10.2); Carbon Dioxide 21 mmol/L (22-30); Chloride 100 mmol/L (98-107); Glucose 113 mg/dl (70-99); Potassium 3.7 mmol/L (3.5-5.1); Sodium 130 mmol/L (135-145); Total Protein 7.4 g/dl (6.3-8.2); eGFR > 60.00
[2024-09-08 14:54] LABS: Troponin I < 0.012 ng/ml
[2024-09-08 15:18] VITALS: BP 181/74
[2024-09-08 16:00] VITALS: BP 157/57
[2024-09-08 16:29] VITALS: BP 186/73
--- NOTE | 2024-09-08 16:36 | ED.GENMED ---
History of Present Illness
<Migdalia Marinelli MD, Resident - Last Filed: 09/08/24 17:25>
General
Chief Complaint: Dizziness
Source: patient
Exam Limitations: none
Time Seen by Provider: 09/08/24 15:53
Nursing documentation reviewed up to this point in time: agreed with
History of Present Illness
History of Present Illness:
Ms. Michelle Bush is an 84yoF with a history of HTN who is presenting with dizziness/lightheadedness for 1 day. A few hours after waking up this morning, she felt like she was going to pass out and she had a headache. Due to her lightheadedness and
home-blood pressure measurement of 179 systolic, she called the ambulance.
She reported she came to the ED 4 days ago due to similar symptoms. No abnormalities noted on head CT and abdominal x-ray.
She takes amlodipine, losartan, and hydrochlorothiazide 25mg (HCTZ), along will other pills, daily, and she endorses taking her medications this morning.
She has had hypertension for years. She reports increased stress around January when she was switching health insurance.
She has a remote history of seizures (15 years ago). She reports having vasovagal syncope to needles as a child, but no longer.
On ROS, she denied visual changes, hearing changes, paresthesias, abdominal pain, temperature intolerance, sleep changes, and recreational drug use. She endorses belching.
She endorses continuing to eat, drink, urinate, and move her bowels well.
Past History
<Migdalia Marinelli MD, Resident - Last Filed: 09/08/24 17:25>
Past History
ED Past Medical History: HTN, Hypercholesterolemia, Seizures, Psychiatric (Anxiety, ) and Other (Neuropathy, PNA, )
ED Past Surgical History: Gynecological (Tubal), Orthopedic (Left meniscus repair, Left wrist fracture) and Other
Social History
Tobacco: Non-smoker
Alcohol: None
Personal:
Living: with family
Employment: Retired
Family History
Family History: Other (Noncontributory)
Review of Systems
<Migdalia Marinelli MD, Resident - Last Filed: 09/08/24 17:25>
Review of Systems
Constitutional: Reports no symptoms
Endocrine: Reports no symptoms
Phy Exam
<Migdalia Marinelli MD, Resident - Last Filed: 09/08/24 17:25>
General Physical Exam
General Presentation: well appearing and no apparent distress
General age: appears stated age
General Skin: warm and dry
General Mental: alert
General Hydration: other (dry lips)
ENT Exam
ENT Exam: EOMI, neck supple and normocephalic
Eye Exam
Eye Exam: EOMI and conjunctiva normal
Cardiovascular Exam
Cardiovascular Exam: regular rate/rhythm and no edema
Heart Sounds: normal
Pulmonary Exam
Pulmonary Exam: lungs clear and no respiratory distress
Gastrointestinal Exam
Gastrointestinal Exam: normal bowel sounds, non tender and soft
Neurological Exam
Neurological Exam: alert
Psychiatric Exam
Psychiatric Exam: normal mood/affect
Course
<Migdalia Marinelli MD, Resident - Last Filed: 09/08/24 17:25>
Orders/Labs/Results
Orders:
Orders
09/08/24 14:13
Electrocardiogram (*1) Urgent
Reason for Study: Vertigo / Dizzy
09/08/24 14:14
EKG- Treatment ONCE
09/08/24 14:25
Complete Blood Count/With Diff Urgent
Comprehensive Metabolic Panel Urgent
Troponin I Urgent
Abnormal Lab Results
09/08/24
14:25
RBC 3.45 L 10^6/uL
(4.20-5.40)
Hgb 10.7 L g/dL
(12.0-16.0)
Hct 29.3 L %
(37.0-47.0)
Monocytes % 9.4 H %
(1.7-9.3)
Sodium 130 L mmol/L
(135-145)
Carbon Dioxide 21 L mmol/L
(22-30)
BUN 20 H mg/dl
(7-17)
Glucose 113 H mg/dl
(70-99)
Calcium 10.8 H mg/dl
(8.4-10.2)
Alkaline Phosphatase 33 L U/L
(38-126)
09/08/24 14:25
09/08/24 14:25
Vital Signs
Initial and Last Documented VS:
Initial Vital Signs
Temp Pulse Resp BP Pulse Ox
98.7 F 80 18 192/74 100
09/08/24 14:20 09/08/24 14:20 09/08/24 14:20 09/08/24 14:20 09/08/24 14:20
Last Documented Vital Signs
Temp Pulse Resp BP Pulse Ox
98.7 F 71 15 167/76 99
09/08/24 14:20 09/08/24 17:15 09/08/24 17:15 09/08/24 17:00 09/08/24 17:15
<Jc Terrazas, DO - Last Filed: 09/08/24 17:20>
Orders/Labs/Results
Orders:
Orders
09/08/24 14:13
Electrocardiogram (*1) Urgent
Reason for Study: Vertigo / Dizzy
09/08/24 14:14
EKG- Treatment ONCE
09/08/24 14:25
Complete Blood Count/With Diff Urgent
Comprehensive Metabolic Panel Urgent
Troponin I Urgent
Abnormal Lab Results
09/08/24
14:25
RBC 3.45 L 10^6/uL
(4.20-5.40)
Hgb 10.7 L g/dL
(12.0-16.0)
Hct 29.3 L %
(37.0-47.0)
Monocytes % 9.4 H %
(1.7-9.3)
Sodium 130 L mmol/L
(135-145)
Carbon Dioxide 21 L mmol/L
(22-30)
BUN 20 H mg/dl
(7-17)
Glucose 113 H mg/dl
(70-99)
Calcium 10.8 H mg/dl
(8.4-10.2)
Alkaline Phosphatase 33 L U/L
(38-126)
09/08/24 14:25
09/08/24 14:25
Vital Signs
Initial and Last Documented VS:
Initial Vital Signs
Temp Pulse Resp BP Pulse Ox
98.7 F 80 18 192/74 100
09/08/24 14:20 09/08/24 14:20 09/08/24 14:20 09/08/24 14:20 09/08/24 14:20
Last Documented Vital Signs
Temp Pulse Resp BP Pulse Ox
98.7 F 71 15 167/76 99
09/08/24 14:20 09/08/24 17:15 09/08/24 17:15 09/08/24 17:00 09/08/24 17:15
<Migdalia Marinelli MD, Resident - Last Filed: 09/08/24 17:25>
MDM/Problems Addressed
MDM/Problems Addressed:
Ms. Martinez is a 84yoF with chronic hypertension who is presenting with lightheadedness. She has presented with vague symptoms, including nausea and dizziness, to the ED three times in the last few weeks.
She reports feeling better in the ED without intervention. We will refer her to cardiology for heart rhythm monitoring. She feels comfortable going home and declined to stay.
Chronic conditions affecting care: HTN
<Migdalia Marinelli MD, Resident - Last Filed: 09/08/24 17:25>
*Pulse Oximetry
SaO2: 99
Oxygen Mode of Delivery: Room air
Patient hypoxic: no
*Critical Care Note
Total Time (30-74mins, 75-104mins- exclusive of procedures): Not Applicable
ED Attending Note
<Migdalai Marinelli MD, Resident - Last Filed: 09/08/24 17:25>
-
Portions of this chart may have been created with voice recognition software.� Occasional wrong word or��sound alike� substitutions may have occurred due to the inherent limitations of voice recognition software.
<Jc Terrazas, DO - Last Filed: 09/08/24 17:20>
ED Attending Note
Patient seen and examined by attending physician: Yes
I performed a history and physical exam of patient and discussed management with resident, I reviewed resident's note and agree with documented findings and plan of care.: Yes
ED Attending Note:
I have seen and evaluated the patient with a [id number] encounter. I have spoken to the resident and involved in the medical history, the physical exam, medical decision making.
Evaluation and management service: agree unless noted differently below.
Results interpretation: agree unless noted differently below.
Focused HPI: 84-year-old female presenting for evaluation of dizziness. Patient states she woke up and felt okay. As she was walking, she felt a sudden onset of dizziness. Throughout the day, symptoms appear to have resolved. This is her third
visit emergency department for vague complaints but states she is already feeling better
Physical exam: Sitting in bed comfortably. Heart regular rate and rhythm. Mildly dry mucous membranes. Lungs clear
Medical Decision Making: We a long discussion about negative workup in the emergency department again this included blood work and EKG. I did raise suspicion for possible cardiac arrhythmia causing her symptoms. Patient does acknowledge my
concerns but states she feels comfortable going home. I did offer and suggest admission so she could have telemetry monitoring and be evaluated by cardiology. She declined admission and understands risks involved. She states she will call her
doctor to discuss her symptoms and the concern that she could be overmedicated. I will place her on the cardiac callback tracker to ensure that cardiology evaluates her to discuss Holter monitor and echo.
Discharge Plan
Departure
Patient Disposition: Home (Routine Discharge)
Date of Disposition: 09/08/24
Time of Disposition: 17:13
Patient with high blood pressure during this ER visit?: Yes
Discharge Problem:
Dizziness
Instructions: Chest Pain CBC Follow Up, BLOOD PRESSURE
Prescriptions:
No Action
cyanocobalamin (vitamin B-12) 1,000 MCG tablet
1,000 mcg PO DAILY
amlodipine 5 MG tablet
5 mg PO DAILY
ferrous sulfate [iron] 325 MG tablet
325 mg PO Q48H
folic acid 1 MG tablet
1 mg PO DAILY
benazepril 40 MG tablet
40 mg PO DAILY
fenofibrate 160 MG tablet
160 mg PO DAILY
cholecalciferol (vitamin D3) 2,000 UNIT tablet
2,000 unit PO DAILY
sennosides [senna] 8.6 mg Tablet
8.6 mg PO HS
Metamucil Packet
1 packet PO BID
docusate sodium [Colace] 100 mg Capsule
200 mg PO DAILY
magnesium oxide 400 mg magnesium Tablet
400 mg PO HS
ondansetron 4 mg tablet,disintegrating
4 mg PO Q8H PRN (Reason: nausea and vomiting) Qty: 10 0RF
Referrals:
Cr Melgar MD [Active, Cardiology]
Ml Batista MD [Family Provider, Family Practice]
Activity Restrictions/Additional Instructions:
Please return for any worsening symptoms.
You may return at any time if you have further concerns.
Please follow up with your doctor at the first available appointment, preferably this week. Please discuss your concern for possible medication reaction.
You were placed on the cardiac callback tracker. Someone from their office should call you in the next few days. If you do not hear from them in the next few days, please give them a call. Please discuss obtaining a Holter monitor and an
echocardiogram.
Thank you for choosing [facility].
Interventions
Interventions:
*Risk Screen - Suicide Last Done: 09/08/24 14:20
*General Assessment Last Done: 09/08/24 14:20
*Neglect/Abuse Screening Last Done: 09/08/24 14:20
ED- Neurological Assessment Last Done: 09/08/24 15:15
ED- Cardiac Assessment Last Done: 09/08/24 15:15
Discharge Date and Time
Print Language: STATELESS
[2024-09-08 17:00] VITALS: BP 167/76
== END 2024-09-08 17:36 | disposition home or self-care (01) ==
LOC: EMR 14:12
PROVIDERS: Emergency Medicine; EMERGENCY PHYSICIAN Student in an Organized Health Care Education/Training Program; FAMILY PHYSICIAN Family Medicine
DX: R42 Dizziness and giddiness (principal); R51.9 Headache, unspecified; I10 Essential (primary) hypertension; R56.9 Unspecified convulsions; F41.9 Anxiety disorder, unspecified; G62.9 Polyneuropathy, unspecified; E78.00 Pure hypercholesterolemia, unspecified; M19.90 Unspecified osteoarthritis, unspecified site; M81.0 Age-related osteoporosis without current pathological fracture; Z79.899 Other long term (current) drug therapy; Z87.01 Personal history of pneumonia (recurrent); Z88.5 Allergy status to narcotic agent
CPT/HCPCS: 99283; 80053; 84484; 85025; 93005

== ENCOUNTER → 2024-10-01 09:03 | Outpatient (REF) | payer MEDICARE, SELFPAY | LOC: RCS 09:03 | PROVIDERS: ATTENDING PHYSICIAN Physician Assistant; FAMILY PHYSICIAN Family Medicine | DX: I49.9 Cardiac arrhythmia, unspecified (principal); R01.1 Cardiac murmur, unspecified | CPT/HCPCS: 93225; 93226; 93306 ==

== ENCOUNTER → 2024-11-24 12:00 | Outpatient (REF) | payer MEDICARE, SELFPAY ==
[2024-11-24 13:27] LABS: Blood Urea Nitrogen 18 mg/dl (7-17); Calcium 9.9 mg/dl (8.4-10.2); Carbon Dioxide 25 mmol/L (22-30); Chloride 102 mmol/L (98-107); Glucose 90 mg/dl (70-99); Potassium 4.9 mmol/L (3.5-5.1); Sodium 134 mmol/L (135-145); eGFR > 60.00
== END ==
LOC: REG 12:00
PROVIDERS: ATTENDING PHYSICIAN Family Medicine
DX: I10 Essential (primary) hypertension (principal); E87.1 Hypo-osmolality and hyponatremia
CPT/HCPCS: 36415; 80048